=== PATIENT | male | born 1970 | race African-American/Black ===

== ENCOUNTER 2018-04-12 09:09 | Emergency (ER) | payer SELFPAY ==
[~2018-04-12] VITALS: Ht 188 cm; Wt 104.3 kg
[2018-04-12 09:18] VITALS: BP 116/67
[2018-04-12] MEDS ORDERED: CEPH500C PO (09:57)
--- NOTE | 2018-04-12 09:58 | PHYS DOC ---
Past Medical History Past Medical History: No Pertinent History Past Surgical History: Other Additional Past Surgical Histo: RIGHT WRIST SX Alcohol Use: None Drug Use: None Adult General Chief Complaint Chief Complaint: SKIN PROBLEM HPI HPI Patient is a 47 year old AA male who presents to the emergency room with complaints of left upper arm warmth, redness, itching, and swelling for the last 3 days. Patient states that at first the area started as what he thought was an insect bite, possibly a spider. He denies any drainage from the area, fever, numbness, tingling, or injury of the arm. He states that the more he itched the area the larger it became. He has tried applying alcohol to the site with no relief of his symptoms. Review of Systems Review of Systems Constitutional: Denies fever or chills [] Musculoskeletal: Denies back pain or joint pain [] Integument:See HPI Neurologic: Denies headache, focal weakness or sensory changes [] All other systems were reviewed and found to be within normal limits, except as documented in this note. Physical Exam Physical Exam Constitutional: Well developed, well nourished, no acute distress, non-toxic appearance. [] HENT: Normocephalic, atraumatic, bilateral external ears normal, nose normal. [] Eyes: PERRLA, conjunctiva normal, no discharge. [] Skin: Warm, dry, erythema and warmth with localized swelling noted to medial left upper arm extending from just below the axilla to the elbow consistent with cellulitis and localized reaction to insect sting Extremities: No tenderness, no cyanosis, no clubbing, ROM intact Neurologic: Alert and oriented X 3, normal motor function, normal sensory function, no focal deficits noted. [] Psychologic: Affect normal, judgement normal, mood normal. [] Current Patient Data Vital Signs Vital Signs Date Time Temp Pulse Resp B/P (MAP) Pulse Ox O2 Delivery O2 Flow Rate FiO2 04/12/18 09:18 98.0 77 18 116/67 (83) 96 Room Air 98.0 EKG EKG [] Radiology/Procedures Radiology/Procedures [] Course & Med Decision Making Course & Med Decision Making Pertinent Labs and Imaging studies reviewed. (See chart for details) [] Dragon Disclaimer Dragon Disclaimer This electronic medical record was generated, in whole or in part, using a voice recognition dictation system. Departure Departure Impression: Primary Impression: Insect bite of arm, left, infected Additional Impressions: Cellulitis Insect bite of upper arm with local reaction Disposition: 01 HOME, SELF-CARE Condition: STABLE Referrals: ANTOINE BOWSER MD (PCP) Patient Instructions: Cellulitis, Kuoe-hp-Mnai, Insect Bite, Otka-fn-Qioj Additional Instructions: Fill the prescription and take as directed. Take eont-hju-flsqrxk Benadryl 25 mg every 6 hours as needed for itching. Also recommend application of hydrocortisone cream to the itchy area. He may apply warm or cool packs for discomfort. Return to the emergency room if your symptoms worsen. Scripts Cephalexin (CEPHALEXIN) 500 Mg Capsule 1 CAP PO QID for 7 Days, #28 CAP 0 Refills Prov: CHRISTIAN PINA APRN 04/12/18 Problem Qualifiers Primary Impression: Insect bite of arm, left, infected Encounter type: initial encounter Qualified Codes: S40.862A - Insect bite ( nonvenomous) of left upper arm, initial encounter; L08.9 - Local infection of the skin and subcutaneous tissue, unspecified; W57.XXXA - Bitten or stung by nonvenomous insect and other nonvenomous arthropods, initial encounter Additional Impressions: Cellulitis Site of cellulitis: unspecified site Qualified Codes: L03.90 - Cellulitis, unspecified Insect bite of upper arm with local reaction Encounter type: initial encounter Laterality: left Qualified Codes: S40.862A - Insect bite (nonvenomous) of left upper arm, initial encounter; W57.XXXA - Bitten or stung by nonvenomous insect and other nonvenomous arthropods, initial encounter CHRISTIAN PINA APRN Apr 12, 2018 09:58
== END 2018-04-12 10:10 | disposition home or self-care (01) ==
LOC: ER 09:09
DX: L03.114 Cellulitis of left upper limb (principal); S40.862A Insect bite (nonvenomous) of left upper arm, initial encounter; L08.9 Local infection of the skin and subcutaneous tissue, unspecified; W57.XXXA Bitten or stung by nonvenomous insect and other nonvenomous arthropods, initial encounter; Y93.89 Activity, other specified; Y92.89 Other specified places as the place of occurrence of the external cause; Y99.8 Other external cause status
CPT/HCPCS: 99283

== ENCOUNTER 2021-07-01 17:38 | Inpatient (IN) | payer SELFPAY ==
[~2021-07-01] VITALS: Ht 188 cm; Wt 101.2 kg
[2021-07-01] VITALS (7 sets, daily range): BP systolic 85–100; BP diastolic 42–57
[~2021-07-01 17:38] MED LIST: CEPH500C PO
[2021-07-01 18:19] LABS: BASO # 0.1 x10^3/uL (0.0-0.2); BASO % 2 % (0-3); EOS % 1 % (0-3); HEMATOCRIT 23.5 % (39.0-53.0); LYMPH # 1.6 x10^3/uL (1.0-4.8); LYMPH % 45 % (24-48); MEAN CORPUSCULAR HEMOGLOBIN 16 pg (25-35); MEAN CORPUSCULAR HGB CONC 28 g/dL (31-37); MEAN CORPUSCULAR VOLUME 59 fL (79-100); MONO # 0.4 x10^3/uL (0.0-1.1); MONO % 10 % (0-9); NEUT # 1.5 x10^3/uL (1.8-7.7); NEUT % 42 % (31-73); PLATELET COUNT 259 x10^3/uL (140-400); RED BLOOD COUNT 4.02 x10^6/uL (4.30-5.70); RED CELL DISTRIBUTION WIDTH 21.3 % (11.5-14.5); WHITE BLOOD COUNT 3.5 x10^3/uL (4.0-11.0)
[2021-07-01 18:29] LABS: CALCIUM 7.9 mg/dL (8.5-10.1); CREATININE 0.8 mg/dL (0.7-1.3); GFR 123.8; POTASSIUM 4.5 mmol/L (3.5-5.1)
[2021-07-01 18:31] LABS: HEMOGLOBIN 6.5 g/dL (13.0-17.5)
[2021-07-01 18:34] LABS: ALBUMIN 3.3 g/dL (3.4-5.0); ALBUMIN/GLOBULIN RATIO 0.9 (1.0-1.7); TOTAL BILIRUBIN 0.3 mg/dL (0.2-1.0); TOTAL PROTEIN 7.1 g/dL (6.4-8.2)
[2021-07-01 18:41] LABS: FECAL OB PT NEGATIVE (NEG)
[2021-07-01] MEDS ORDERED: DOCUSATE SODIUM 100 MG CAPSULE. PO PRN (18:45)
[2021-07-01] MEDS ORDERED: SENNOSIDES 8.6 MG TABLET PO PRN (18:45)
[2021-07-01] MEDS ORDERED: ONDANSETRON PF 4 MG/2 ML VIAL. IVP PRN ×2 (18:45→20:15)
[2021-07-01] MEDS ORDERED: diphenhydrAMINE HCL 25 MG CAPSULE PO PRN (18:45)
[2021-07-01] MEDS ORDERED: PROCHLORPERAZINE 10 MG/2 ML VIAL. IV PRN (18:45)
[2021-07-01] MEDS ORDERED: ZOLPIDEM 5 MG TABLET. PO PRN (18:45)
[2021-07-01] MEDS ORDERED: ACETAMINOPHEN 325 MG TABLET. PO PRN ×2 (18:45→20:15)
[2021-07-01] MEDS ORDERED: DEXTROSE 50% 25 GM / 50ML DISP.SYRIN. IV PRN (18:45)
[2021-07-01] MEDS ORDERED: diphenhydrAMINE 50 MG/ML VIAL IVP PRN (18:45)
--- NOTE | 2021-07-01 18:49 | PDOC1 ---
History and Physical Date of Service: DOS: DATE: 07/01/21 TIME: 18:38 Chief Complaint: Chief Complain: Abnormal labs History of Present Illness: HPI: 50-year-old male with past medical history of chronic back pain who comes in with abnormal labs from the doctor's office. Patient states that he has been having on-and-off rectal bleeding for the past 5 years but has never had a work- up. Patient has never had a colonoscopy. He was found to have hemoglobin of 6.5 today. Patient denies any abdominal pain, nausea vomiting, chest pain, shortness of breath or syncope or palpitations. Patient does have severe back pain. Past Medical/Surgical History: PMH/PSH: Past Medical History: No Pertinent History, Anemia, CHRONIC SHOULDER PAIN Past Surgical History: No Surgical History, RIGHT WRIST SX Allergies: Allergies: Coded Allergies: No Known Drug Allergies (Unverified , 07/01/21) Family History: Family History: Reviewed with no relevant findings in the chart Social History: Social History: Smoking Status: Current Smoker Alcohol Use: Heavy Drug Use: None Current Medications: Current Medications Active Scripts Active Cephalexin 500 Mg Capsule 1 Cap PO QID 7 Days ROS: Review of Systems Review of System REVIEW OF SYSTEMS: GENERAL: Denies weakness SKIN: No bruising, hair changes or rashes. EYES: No blurred, double or loss of vision. NOSE AND THROAT: No history of nosebleeds, hoarseness or sore throat. HEART: No history of palpitations, chest pain or shortness of breath on exertion. LUNGS: Denies cough, hemoptysis, wheezing or shortness of breath. GASTROINTESTINAL: Denies changes in appetite, nausea, vomiting, diarrhea or constipation. GENITOURINARY: No history of frequency, urgency, hesitancy or nocturia. NEUROLOGIC: Denies history of numbness, tingling, or tremor. PSYCHIATRIC: No history of panic, anxiety or depression. ENDOCRINE: No history of heat or cold intolerance, polyuria or polydipsia. EXTREMITIES: Denies joint pain, pain on walking or stiffness. Physical Exam: Vital Signs: Vital Signs Date Time Temp Pulse Resp B/P (MAP) Pulse Ox O2 Delivery O2 Flow Rate FiO2 07/01/21 17:45 98.7 83 20 118/59 (78) 99 98.7 Physcial Exam: GEN: No apparent distress. Alert and oriented HEENT: Normal cephalic, atraumatic, external auditory canals are patent EYES: Extraocular muscles are intact, pupil are equally round and reactive to light and accommodation MUSCULOSKELETAL: Well developed , well nourished, good range of motion ENDOCRINE: No thyromegaly was palpated LYMPHATICS: No cervical chain or axillary nodes were noted HEMATOPOIETIC: No bruising NECK: Supple, no JVD, no thyromegaly was noted LUNGS: Clear to auscultation in all lung ham[place] without rhonchi or wheezing HEART: RRR, S!, S2 present. Peripheral pulses intact, no obvious murmurs noted ABDOMEN: Soft, nontender. Positive bowel sounds, no organomegaly, normal bowel sounds EXTREMITIES: Without clubbing, cyanosis, or edema. Pedal pulses intact. Negative Homans sign NEUROLOGIC: Normal speech and tone. A&O x 3, moves all extremities, no obvious focal deficits PSYCHIATRIC: Normal affect, normal mood. Stable SKIN: No ulcerations or rashes, good skin turgor, no jaundice VASCULAR: Good capillary refill, neurovascular bundle appears to be intact Labs: Labs: Laboratory Tests Test 07/01/21 18:10 White Blood Count 3.5 x10^3/uL (4.0-11.0) Red Blood Count 4.02 x10^6/uL (4.30-5.70) Hemoglobin 6.5 g/dL (13.0-17.5) Hematocrit 23.5 % (39.0-53.0) Mean Corpuscular Volume 59 fL (79-100) Mean Corpuscular Hemoglobin 16 pg (25-35) Mean Corpuscular Hemoglobin Concent 28 g/dL (31-37) Red Cell Distribution Width 21.3 % (11.5-14.5) Platelet Count 259 x10^3/uL (140-400) Neutrophils (%) (Auto) 42 % (31-73) Lymphocytes (%) (Auto) 45 % (24-48) Monocytes (%) (Auto) 10 % (0-9) Eosinophils (%) (Auto) 1 % (0-3) Basophils (%) (Auto) 2 % (0-3) Neutrophils # (Auto) 1.5 x10^3/uL (1.8-7.7) Lymphocytes # (Auto) 1.6 x10^3/uL (1.0-4.8) Monocytes # (Auto) 0.4 x10^3/uL (0.0-1.1) Eosinophils # (Auto) 0.0 x10^3/uL (0.0-0.7) Basophils # (Auto) 0.1 x10^3/uL (0.0-0.2) Sodium Level 140 mmol/L (136-145) Potassium Level 4.5 mmol/L (3.5-5.1) Chloride Level 105 mmol/L (98-107) Carbon Dioxide Level 22 mmol/L (21-32) Anion Gap 13 (6-14) Blood Urea Nitrogen 9 mg/dL (8-26) Creatinine 0.8 mg/dL (0.7-1.3) Estimated GFR (Cockcroft-Gault) 123.8 BUN/Creatinine Ratio 11 (6-20) Glucose Level 99 mg/dL (70-99) Calcium Level 7.9 mg/dL (8.5-10.1) Total Bilirubin 0.3 mg/dL (0.2-1.0) Aspartate Amino Transf (AST/SGOT) 22 U/L (15-37) Alanine Aminotransferase (ALT/SGPT) 22 U/L (16-63) Alkaline Phosphatase 74 U/L (46-116) Total Protein 7.1 g/dL (6.4-8.2) Albumin 3.3 g/dL (3.4-5.0) Albumin/Globulin Ratio 0.9 (1.0-1.7) Laboratory Tests Test 07/01/21 18:10 White Blood Count 3.5 x10^3/uL (4.0-11.0) Red Blood Count 4.02 x10^6/uL (4.30-5.70) Hemoglobin 6.5 g/dL (13.0-17.5) Hematocrit 23.5 % (39.0-53.0) Mean Corpuscular Volume 59 fL (79-100) Mean Corpuscular Hemoglobin 16 pg (25-35) Mean Corpuscular Hemoglobin Concent 28 g/dL (31-37) Red Cell Distribution Width 21.3 % (11.5-14.5) Platelet Count 259 x10^3/uL (140-400) Neutrophils (%) (Auto) 42 % (31-73) Lymphocytes (%) (Auto) 45 % (24-48) Monocytes (%) (Auto) 10 % (0-9) Eosinophils (%) (Auto) 1 % (0-3) Basophils (%) (Auto) 2 % (0-3) Neutrophils # (Auto) 1.5 x10^3/uL (1.8-7.7) Lymphocytes # (Auto) 1.6 x10^3/uL (1.0-4.8) Monocytes # (Auto) 0.4 x10^3/uL (0.0-1.1) Eosinophils # (Auto) 0.0 x10^3/uL (0.0-0.7) Basophils # (Auto) 0.1 x10^3/uL (0.0-0.2) Sodium Level 140 mmol/L (136-145) Potassium Level 4.5 mmol/L (3.5-5.1) Chloride Level 105 mmol/L (98-107) Carbon Dioxide Level 22 mmol/L (21-32) Anion Gap 13 (6-14) Blood Urea Nitrogen 9 mg/dL (8-26) Creatinine 0.8 mg/dL (0.7-1.3) Estimated GFR (Cockcroft-Gault) 123.8 BUN/Creatinine Ratio 11 (6-20) Glucose Level 99 mg/dL (70-99) Calcium Level 7.9 mg/dL (8.5-10.1) Total Bilirubin 0.3 mg/dL (0.2-1.0) Aspartate Amino Transf (AST/SGOT) 22 U/L (15-37) Alanine Aminotransferase (ALT/SGPT) 22 U/L (16-63) Alkaline Phosphatase 74 U/L (46-116) Total Protein 7.1 g/dL (6.4-8.2) Albumin 3.3 g/dL (3.4-5.0) Albumin/Globulin Ratio 0.9 (1.0-1.7) Images: Images No recent images to review Assessment/Plan Assessment/Plan Acute symptomatic profound anemia, secondary to acute GIB Microcytic anemia, possible KATHY Acute on chronic back pain, likely due to sciatica Admit to hospitalist service for further management GI consult Pending 1 unit PRBC transfusion Trend hemoglobin PMR consult for sciatica Contraindicated for DVT prophylaxis Protonix GI prophylaxis ADA diet CODE STATUS full Discussed with RN and SW Disposition inpatient management as above DPOA: Merissa Boogie Justifications for Admission Other Justification HERMELINDA NATHAN MD Jul 01, 2021 18:49
--- NOTE | 2021-07-01 19:02 | PHYS DOC ---
Past Medical History Past Medical History: No Pertinent History, Anemia Additional Past Medical Histor: CHRONIC SHOULDER PAIN Past Surgical History: No Surgical History Additional Past Surgical Histo: RIGHT WRIST SX Smoking Status: Never Smoker Alcohol Use: Heavy Drug Use: None General Adult EDM: Chief Complaint: ABNORMAL LABS HPI: HPI: Patient is a 50 year old male with no significant medical history who presents to the ED today complaining of a anemia. Patient states he was at the doctor's office where labs were drawn as part of disability work-up for chronic shoulder pain from an injury a couple years ago, he states hemoglobin was 6.4 with HCT of 23.1. Patient's significant female partner states he has had rectal bleeding on and off for a couple years but never took action to get help though patient seem not aware of his rectal bleeding. Patient denies any nausea, vomiting. Review of Systems: Review of Systems: Constitutional: Denies fever or chills. [] Eyes: Denies change in visual acuity. [] HENT: Denies nasal congestion or sore throat. [] Respiratory: Denies cough or shortness of breath. [] Cardiovascular: Reports anemia. Denies chest pain or edema. [] GI: Reports rectal bleeding. Denies abdominal pain, nausea, vomiting, bloody stools or diarrhea. [] : Denies dysuria. [] Musculoskeletal: Denies back pain or joint pain. [] Integument: Denies rash. [] Neurologic: Denies headache, focal weakness or sensory changes. [] Psychiatric: Denies depression or anxiety. [] Heart Score: C/O Chest Pain: N/A Risk Factors: Risk Factors: DM, Current or recent (<one month) smoker, HTN, HLP, family history of CAD, obesity. Risk Scores: Score 0 - 3: 2.5% MACE over next 6 weeks - Discharge Home Score 4 - 6: 20.3% MACE over next 6 weeks - Admit for Clinical Observation Score 7 - 10: 72.7% MACE over next 6 weeks - Early Invasive Strategies Current Medications: Current Medications Medications (Trade) Dose Ordered Sig/Lilian Start Time Stop Time Status Last Admin Dose Admin Acetaminophen (Tylenol) 650 mg PRN Q4HRS PRN 07/01/21 18:45 Dextrose (Dextrose 50%-Water Syringe) 12.5 gm PRN Q15MIN PRN 07/01/21 18:45 Diphenhydramine HCl (Benadryl) 25 mg PRN QHS PRN 07/01/21 18:45 Docusate Sodium (Colace) 100 mg PRN DAILY PRN 07/01/21 18:45 Lorazepam (Ativan Inj) 0.25 mg PRN Q4HRS PRN 07/01/21 18:45 Lorazepam (Ativan) 0.5 mg PRN Q6HRS PRN 07/01/21 18:45 Ondansetron HCl (Zofran) 4 mg PRN Q6HRS PRN 07/01/21 18:45 Pantoprazole Sodium (Protonix) 40 mg DAILYAC 07/02/21 07:30 Prochlorperazine Edisylate (Compazine) 10 mg PRN Q6HRS PRN 07/01/21 18:45 Sennosides (Senna) 17.2 mg PRN BID PRN 07/01/21 18:45 Sodium Chloride 1,000 ml @ 100 mls/hr Q10H 07/01/21 18:45 Zolpidem Tartrate (Ambien) 2.5 mg PRN QHS PRN 07/01/21 18:45 Allergies: Allergies: Allergies Coded Allergies Type Severity Reaction Last Updated Verified No Known Drug Allergies 07/01/21 No Physical Exam: PE: Constitutional: Well developed, well nourished, no acute distress, non-toxic appearance. [] HENT: Normocephalic, atraumatic, bilateral external ears normal, oropharynx moist, no oral exudates, nose normal. [] Eyes: PERRLA, EOMI, conjunctiva normal, no discharge. [] Neck: Normal range of motion, no tenderness, supple, no stridor. [] Cardiovascular:Heart rate regular rhythm, no murmur [] Lungs & Thorax: Bilateral breath sounds clear to auscultation [] Abdomen: Bowel sounds normal, soft, no tenderness, no masses, no pulsatile masses. [] Rectal exam-external hemorrhoids noted, no internal hemorrhoids noted on exam. Skin: Warm, dry, no erythema, no rash. [] Back: No tenderness, no CVA tenderness. [] Extremities: No tenderness, no cyanosis, no clubbing, ROM intact, no edema. [] Neurologic: Alert and oriented X 3, normal motor function, normal sensory function, no focal deficits noted. [] Psychologic: Appears intoxicated, laughing inappropriately Current Patient Data: Labs: Laboratory Tests Test 07/01/21 18:01 07/01/21 18:10 Stool Occult Blood Negative (NEG) White Blood Count 3.5 x10^3/uL (4.0-11.0) L Red Blood Count 4.02 x10^6/uL (4.30-5.70) L Hemoglobin 6.5 g/dL (13.0-17.5) *L Hematocrit 23.5 % (39.0-53.0) L Mean Corpuscular Volume 59 fL (79-100) L Mean Corpuscular Hemoglobin 16 pg (25-35) L Mean Corpuscular Hemoglobin Concent 28 g/dL (31-37) L Red Cell Distribution Width 21.3 % (11.5-14.5) H Platelet Count 259 x10^3/uL (140-400) Neutrophils (%) (Auto) 42 % (31-73) Lymphocytes (%) (Auto) 45 % (24-48) Monocytes (%) (Auto) 10 % (0-9) H Eosinophils (%) (Auto) 1 % (0-3) Basophils (%) (Auto) 2 % (0-3) Neutrophils # (Auto) 1.5 x10^3/uL (1.8-7.7) L Lymphocytes # (Auto) 1.6 x10^3/uL (1.0-4.8) Monocytes # (Auto) 0.4 x10^3/uL (0.0-1.1) Eosinophils # (Auto) 0.0 x10^3/uL (0.0-0.7) Basophils # (Auto) 0.1 x10^3/uL (0.0-0.2) Sodium Level 140 mmol/L (136-145) Potassium Level 4.5 mmol/L (3.5-5.1) Chloride Level 105 mmol/L (98-107) Carbon Dioxide Level 22 mmol/L (21-32) Anion Gap 13 (6-14) Blood Urea Nitrogen 9 mg/dL (8-26) Creatinine 0.8 mg/dL (0.7-1.3) Estimated GFR (Cockcroft-Gault) 123.8 BUN/Creatinine Ratio 11 (6-20) Glucose Level 99 mg/dL (70-99) Calcium Level 7.9 mg/dL (8.5-10.1) L Total Bilirubin 0.3 mg/dL (0.2-1.0) Aspartate Amino Transferase (AST) 22 U/L (15-37) Alanine Aminotransferase (ALT) 22 U/L (16-63) Alkaline Phosphatase 74 U/L (46-116) Total Protein 7.1 g/dL (6.4-8.2) Albumin 3.3 g/dL (3.4-5.0) L Albumin/Globulin Ratio 0.9 (1.0-1.7) L Laboratory Tests 07/01/21 18:10 Laboratory Tests 07/01/21 18:10 Vital Signs: Vital Signs Date Time Temp Pulse Resp B/P (MAP) Pulse Ox O2 Delivery O2 Flow Rate FiO2 07/01/21 17:45 98.7 83 20 118/59 (78) 99 98.7 EKG: EKG: [] Radiology/Procedures: Radiology/Procedures: [] Course & Med Decision Making: Course & Med Decision Making Pertinent Labs and Imaging studies reviewed. (See chart for details) This is a 50-year-old male patient presenting to the ED today for anemia, hemoglobin of 6.4 with hematocrit of 23.1, labs are drawn today at the doctor's office. Hemoglobin in the ED is 6.5 with hematocrit of 23.4 with MCV of 59, MCH 16 WBC 3.5 Hemoccult negative. Alcohol level 234. Spoke with Dr. Lares who accepted patient for admission. 1 unit of blood ordered Tanisha Disclaimer: Tanisha Disclaimer: This electronic medical record was generated, in whole or in part, using a voice recognition dictation system. Departure Departure Impression: Primary Impression: Anemia Qualified Codes: D64.9 - Anemia, unspecified Additional Impression: ETOHism Disposition: ADMITTED INPATIENT Condition: STABLE Referrals: NON,STAFF (PCP) QI TODD APRN Jul 01, 2021 19:01
[2021-07-01] MEDS ORDERED: MORPHINE SULFATE 2 MG/ML INJ. IVP PRN (20:15)
[2021-07-01] MEDS ORDERED: HYDROcodone/APAP 5/325MG 1 TAB TABLET PO PRN (20:30)
[2021-07-01] MEDS: IV NORMAL SALINE 1000ML BAG 1,000 ML IV SCH (20:38)
[2021-07-01] MEDS: THIAMINE 100 MG TABLET. PO SCH (21:11)
[2021-07-01] MEDS: HYDROcodone/APAP 5/325MG 1 TAB TABLET PO PRN (21:16)
[2021-07-02] VITALS (10 sets, daily range): BP systolic 88–137; BP diastolic 50–86
[2021-07-02] MEDS: LORazepam 0.5 MG TABLET PO PRN ×3 (03:19→16:21)
[2021-07-02] MEDS: HYDROcodone/APAP 5/325MG 1 TAB TABLET PO PRN ×2 (03:23→09:20)
[2021-07-02] MEDS: IV NORMAL SALINE 1000ML BAG 1,000 ML IV SCH ×3 (04:53→20:01)
[2021-07-02 06:44] LABS: BASO % 1 % (0-3); EOS % 1 % (0-3); HEMATOCRIT 23.2 % (39.0-53.0); LYMPH % 40 % (24-48); MEAN CORPUSCULAR HEMOGLOBIN 18 pg (25-35); MEAN CORPUSCULAR HGB CONC 30 g/dL (31-37); MEAN CORPUSCULAR VOLUME 60 fL (79-100); MONO # 0.4 x10^3/uL (0.0-1.1); MONO % 15 % (0-9); NEUT # 1.1 x10^3/uL (1.8-7.7); NEUT % 43 % (31-73); PLATELET COUNT 234 x10^3/uL (140-400); RED BLOOD COUNT 3.84 x10^6/uL (4.30-5.70); RED CELL DISTRIBUTION WIDTH 23.9 % (11.5-14.5); WHITE BLOOD COUNT 2.5 x10^3/uL (4.0-11.0)
[2021-07-02 06:56] LABS: HEMOGLOBIN 6.9 g/dL (13.0-17.5)
[2021-07-02 07:05] LABS: CALCIUM 7.3 mg/dL (8.5-10.1); CREATININE 0.8 mg/dL (0.7-1.3); GFR 123.8; MAGNESIUM 1.7 mg/dL (1.8-2.4); PHOSPHORUS 4.1 mg/dL (2.6-4.7); POTASSIUM 4.6 mmol/L (3.5-5.1)
[2021-07-02] MEDS: PANTOPRAZOLE 40 MG TABLET.DR. PO SCH (09:20)
[2021-07-02] MEDS: VITAMIN B12,B9,B6 COMPLEX 1 TABLET. PO SCH (09:20)
[2021-07-02] MEDS: THIAMINE 100 MG TABLET. PO SCH (09:20)
[2021-07-02 09:31] LABS: % BANDS 1 % (0-9); % EOS 1 % (0-5); % LYMPHS 23 % (24-48); % MONOS 7 % (0-10); % SEGS 68 % (35-66); ANISOCYTOSIS PRESENT; HYPOCHROMIA PRESENT; MICROCYTOSIS PRESENT; PLT ESTIMATE ADEQUATE (ADEQUATE); POIKILOCYTOSIS PRESENT; POLYCHROMASIA PRESENT
--- NOTE | 2021-07-02 10:19 | PDOC2 ---
GI CONSULT Date of Service: DATE: 07/02/21 TIME: 10:09 Reason For Consult: anemia HPI: HPI: 50 y/o male sent to ER for abnormal labs and admitted. We are asked to see for KATHY. S/p 1 unit pRBCs and another ordered. Eating regular diet and his just brought him a cookie from downstairs. Intermittent rectal bleeding (brown stool w/ red blood on tissue, sometimes dripping into toilet) and hematuria for >1 year. No reflux/heartburn, dysphagia, n/v, abd pain, diarrhea, constipation, melena, change in appetite, or weight loss. (He said he didn't know about weight loss - I asked if his clothes fit the same and he said "most of them do and most of them don't. His says he has not lost weight and that he has a good appetite.) No previous EGD or colonoscopy. No GB, liver, pancreas, or PUD history. Was taking BC powder, stopped recently. Lot of family members with cancer, "probably" some w/ colon cancer. Reviewed pas labs - anemia/microcytosis noted in 01/2021. Alcohol level 234 this time. Significant time spent, plan of care detailed, questions answered - then he said "no one is telling me anything." Pt and were not satisfied with care provided at a free clinic he visited recently. PMH: PMH: headaches, shoulder pain right wrist surgery FH: Family History: Cancer Social History: Smoke: <1 pack per day ALCOHOL: heavy ROS: GEN: Denies fevers, chills, sweats HEENT: Denies blurred vision, sore throat CV: Denies chest pain RESP: Denies shortness of air, cough GI: Per HPI : +hematuria ENDO: Denies weight changes NEURO: Denies confusion, dizziness MSK: Denies weakness, joint pain/swelling SKIN: Denies jaundice, pruritus Vitals: Vitals: Vital Signs Date Time Temp Pulse Resp B/P (MAP) Pulse Ox O2 Delivery O2 Flow Rate FiO2 07/02/21 10:00 Room Air 07/02/21 07:00 74 18 123/76 (92) 97 07/01/21 23:45 98.5 98.5 Labs: Labs: Laboratory Tests Test 07/01/21 18:01 07/01/21 18:10 07/02/21 05:55 Stool Occult Blood Negative (NEG) White Blood Count 3.5 x10^3/uL (4.0-11.0) 2.5 x10^3/uL (4.0-11.0) Red Blood Count 4.02 x10^6/uL (4.30-5.70) 3.84 x10^6/uL (4.30-5.70) Hemoglobin 6.5 g/dL (13.0-17.5) 6.9 g/dL (13.0-17.5) Hematocrit 23.5 % (39.0-53.0) 23.2 % (39.0-53.0) Mean Corpuscular Volume 59 fL (79-100) 60 fL (79-100) Mean Corpuscular Hemoglobin 16 pg (25-35) 18 pg (25-35) Mean Corpuscular Hemoglobin Concent 28 g/dL (31-37) 30 g/dL (31-37) Red Cell Distribution Width 21.3 % (11.5-14.5) 23.9 % (11.5-14.5) Platelet Count 259 x10^3/uL (140-400) 234 x10^3/uL (140-400) Neutrophils (%) (Auto) 42 % (31-73) 43 % (31-73) Lymphocytes (%) (Auto) 45 % (24-48) 40 % (24-48) Monocytes (%) (Auto) 10 % (0-9) 15 % (0-9) Eosinophils (%) (Auto) 1 % (0-3) 1 % (0-3) Basophils (%) (Auto) 2 % (0-3) 1 % (0-3) Neutrophils # (Auto) 1.5 x10^3/uL (1.8-7.7) 1.1 x10^3/uL (1.8-7.7) Lymphocytes # (Auto) 1.6 x10^3/uL (1.0-4.8) 1.0 x10^3/uL (1.0-4.8) Monocytes # (Auto) 0.4 x10^3/uL (0.0-1.1) 0.4 x10^3/uL (0.0-1.1) Eosinophils # (Auto) 0.0 x10^3/uL (0.0-0.7) 0.0 x10^3/uL (0.0-0.7) Basophils # (Auto) 0.1 x10^3/uL (0.0-0.2) 0.0 x10^3/uL (0.0-0.2) Sodium Level 140 mmol/L (136-145) 140 mmol/L (136-145) Potassium Level 4.5 mmol/L (3.5-5.1) 4.6 mmol/L (3.5-5.1) Chloride Level 105 mmol/L (98-107) 108 mmol/L (98-107) Carbon Dioxide Level 22 mmol/L (21-32) 23 mmol/L (21-32) Anion Gap 13 (6-14) 9 (6-14) Blood Urea Nitrogen 9 mg/dL (8-26) 8 mg/dL (8-26) Creatinine 0.8 mg/dL (0.7-1.3) 0.8 mg/dL (0.7-1.3) Estimated GFR (Cockcroft-Gault) 123.8 123.8 BUN/Creatinine Ratio 11 (6-20) Glucose Level 99 mg/dL (70-99) 91 mg/dL (70-99) Calcium Level 7.9 mg/dL (8.5-10.1) 7.3 mg/dL (8.5-10.1) Ferritin 4 ng/mL (26-388) Total Bilirubin 0.3 mg/dL (0.2-1.0) Aspartate Amino Transf (AST/SGOT) 22 U/L (15-37) Alanine Aminotransferase (ALT/SGPT) 22 U/L (16-63) Alkaline Phosphatase 74 U/L (46-116) Total Protein 7.1 g/dL (6.4-8.2) Albumin 3.3 g/dL (3.4-5.0) Albumin/Globulin Ratio 0.9 (1.0-1.7) Ethyl Alcohol Level 234 mg/dL (0-10) Segmented Neutrophils % 68 % (35-66) Band Neutrophils % 1 % (0-9) Lymphocytes % 23 % (24-48) Monocytes % 7 % (0-10) Eosinophils % 1 % (0-5) Platelet Estimate Adequate (ADEQUATE) Polychromasia Present Hypochromasia Present Poikilocytosis Present Anisocytosis Present Microcytosis Present Macrocytosis Present Phosphorus Level 4.1 mg/dL (2.6-4.7) Magnesium Level 1.7 mg/dL (1.8-2.4) Allergies: Coded Allergies: No Known Drug Allergies (Unverified , 07/01/21) Medications: Current Medications Medications (Trade) Dose Ordered Sig/Lilian Route PRN Reason Start Time Stop Time Status Last Admin Dose Admin Ondansetron HCl (Zofran) 4 mg PRN Q6HRS PRN IVP NAUSEA/VOMITING, 1st CHOICE 07/01/21 18:45 07/02/21 05:18 Sodium Chloride 1,000 ml @ 100 mls/hr Q10H IV 07/01/21 18:45 07/02/21 04:53 Lorazepam (Ativan) 0.5 mg PRN Q6HRS PRN PO ANXIETY / AGITATION 07/01/21 18:45 07/02/21 09:20 Lorazepam (Ativan Inj) 0.25 mg PRN Q4HRS PRN IV ANXIETY / AGITATION 07/01/21 18:45 07/02/21 05:24 Pantoprazole Sodium (Protonix) 40 mg DAILYAC PO 07/02/21 07:30 07/02/21 09:20 Zolpidem Tartrate (Ambien) 2.5 mg PRN QHS PRN PO INSOMNIA, 2nd CHOICE 07/01/21 18:45 07/01/21 21:12 Acetaminophen/ Hydrocodone Bitart (Lortab 5/325) 2 tab PRN Q4HRS PRN PO MODERATE PAIN, SEVERE PAIN 07/01/21 20:30 07/02/21 09:20 Thiamine Mononitrate (Vitamin B-1) 300 mg DAILY PO 07/01/21 21:00 07/02/21 09:20 Vitamin B Complex (Folbic Tablet) 1 tab DAILY PO 07/02/21 09:00 07/02/21 09:20 PE: GEN: NAD HEENT: Atraumatic, PERRL LUNGS: frequent coughing HEART: RRR ABD: NABS, S/ND/NT, umbilical hernia, right inguinal hernia EXTREMITY: No edema SKIN: No rashes, no jaundice NEURO/PSYCH: A & O 3 A/P: A/P: KATHY - requiring transfusions Intermittent rectal bleeding, Hemoccult negative CRC screen - none +alcohol -- DC per primary if able to maintain Hgb after next transfusion. Future tra nsfusion can also be completed as outpt. Would send on PPI and iron. Recommend no NSAIDs/ASA. Our office will call to arrange outpt EGD and colonoscopy. Should drink less. VELMA BOLDEN Jul 02, 2021 10:19
--- NOTE | 2021-07-02 10:41 | PDOC ---
[employer] PROGRESS NOTE Date of Service DOS: DATE: 07/02/21 TIME: 10:28 History of Present Illness History of Present Illness 07/02/2021 Patient seen and examined at bedside this morning with his also present in room Patient in mild distress this morning due to dizziness when moving his head or standing up Patient also admits right-sided headache Discussed patient alcohol intake with spouse; Spouse indicates increased drink ing due to recent funerals and celebrations; insists patient is "not an alcoholic" Patient states that he has been scheduled for upcoming EGD and colonoscopy on outpatient basis Discussed with RN Chart reviewed Vitals/I&O Vitals/I&O: Vital Signs Date Time Temp Pulse Resp B/P (MAP) Pulse Ox O2 Delivery O2 Flow Rate FiO2 07/02/21 10:00 Room Air 07/02/21 07:00 74 18 123/76 (92) 97 07/01/21 23:45 98.5 98.5 Physical Exam General: Alert, Oriented X3 Heart: Regular rate, No murmurs Lungs: Clear Abdomen: Soft, No tenderness Extremities: No clubbing, No cyanosis Skin: No rashes Labs Labs: Laboratory Tests Test 07/01/21 18:01 07/01/21 18:10 07/02/21 05:55 Stool Occult Blood Negative (NEG) White Blood Count 3.5 x10^3/uL (4.0-11.0) 2.5 x10^3/uL (4.0-11.0) Red Blood Count 4.02 x10^6/uL (4.30-5.70) 3.84 x10^6/uL (4.30-5.70) Hemoglobin 6.5 g/dL (13.0-17.5) 6.9 g/dL (13.0-17.5) Hematocrit 23.5 % (39.0-53.0) 23.2 % (39.0-53.0) Mean Corpuscular Volume 59 fL (79-100) 60 fL (79-100) Mean Corpuscular Hemoglobin 16 pg (25-35) 18 pg (25-35) Mean Corpuscular Hemoglobin Concent 28 g/dL (31-37) 30 g/dL (31-37) Red Cell Distribution Width 21.3 % (11.5-14.5) 23.9 % (11.5-14.5) Platelet Count 259 x10^3/uL (140-400) 234 x10^3/uL (140-400) Neutrophils (%) (Auto) 42 % (31-73) 43 % (31-73) Lymphocytes (%) (Auto) 45 % (24-48) 40 % (24-48) Monocytes (%) (Auto) 10 % (0-9) 15 % (0-9) Eosinophils (%) (Auto) 1 % (0-3) 1 % (0-3) Basophils (%) (Auto) 2 % (0-3) 1 % (0-3) Neutrophils # (Auto) 1.5 x10^3/uL (1.8-7.7) 1.1 x10^3/uL (1.8-7.7) Lymphocytes # (Auto) 1.6 x10^3/uL (1.0-4.8) 1.0 x10^3/uL (1.0-4.8) Monocytes # (Auto) 0.4 x10^3/uL (0.0-1.1) 0.4 x10^3/uL (0.0-1.1) Eosinophils # (Auto) 0.0 x10^3/uL (0.0-0.7) 0.0 x10^3/uL (0.0-0.7) Basophils # (Auto) 0.1 x10^3/uL (0.0-0.2) 0.0 x10^3/uL (0.0-0.2) Sodium Level 140 mmol/L (136-145) 140 mmol/L (136-145) Potassium Level 4.5 mmol/L (3.5-5.1) 4.6 mmol/L (3.5-5.1) Chloride Level 105 mmol/L (98-107) 108 mmol/L (98-107) Carbon Dioxide Level 22 mmol/L (21-32) 23 mmol/L (21-32) Anion Gap 13 (6-14) 9 (6-14) Blood Urea Nitrogen 9 mg/dL (8-26) 8 mg/dL (8-26) Creatinine 0.8 mg/dL (0.7-1.3) 0.8 mg/dL (0.7-1.3) Estimated GFR (Cockcroft-Gault) 123.8 123.8 BUN/Creatinine Ratio 11 (6-20) Glucose Level 99 mg/dL (70-99) 91 mg/dL (70-99) Calcium Level 7.9 mg/dL (8.5-10.1) 7.3 mg/dL (8.5-10.1) Ferritin 4 ng/mL (26-388) Total Bilirubin 0.3 mg/dL (0.2-1.0) Aspartate Amino Transf (AST/SGOT) 22 U/L (15-37) Alanine Aminotransferase (ALT/SGPT) 22 U/L (16-63) Alkaline Phosphatase 74 U/L (46-116) Total Protein 7.1 g/dL (6.4-8.2) Albumin 3.3 g/dL (3.4-5.0) Albumin/Globulin Ratio 0.9 (1.0-1.7) Ethyl Alcohol Level 234 mg/dL (0-10) Segmented Neutrophils % 68 % (35-66) Band Neutrophils % 1 % (0-9) Lymphocytes % 23 % (24-48) Monocytes % 7 % (0-10) Eosinophils % 1 % (0-5) Platelet Estimate Adequate (ADEQUATE) Polychromasia Present Hypochromasia Present Poikilocytosis Present Anisocytosis Present Microcytosis Present Macrocytosis Present Phosphorus Level 4.1 mg/dL (2.6-4.7) Magnesium Level 1.7 mg/dL (1.8-2.4) Assessment and Plan Assessmemt and Plan Problems Medical Problems: (1) Anemia Status: Acute (2) ETOHism Status: Acute Assessment Acute symptomatic profound anemia, secondary to acute GIB Microcytic anemia, possible KATHY Acute on chronic back pain, likely due to sciatica Plan Await 1 unit PRBC transfusion (07/02) Toradol for right sided headache FeSO4 for anemia Trend hemoglobin Await PMR consult for sciatica PT/OT for back pain Protonix GI prophylaxis ADA diet Discussed with RN and SW Appreciate GI input Pharmacological DVT prophylaxis contraindicated Full Code Disposition inpatient management as above DPOA: Merissa Boogie Comment Review of Relevant I have reviewed the following items sandeep (where applicable) has been applied. Medications: Current Medications Medications (Trade) Dose Ordered Sig/Lilian Route PRN Reason Start Time Stop Time Status Last Admin Dose Admin Ondansetron HCl (Zofran) 4 mg PRN Q6HRS PRN IVP NAUSEA/VOMITING, 1st CHOICE 07/01/21 18:45 07/02/21 05:18 Sodium Chloride 1,000 ml @ 100 mls/hr Q10H IV 07/01/21 18:45 07/02/21 04:53 Lorazepam (Ativan) 0.5 mg PRN Q6HRS PRN PO ANXIETY / AGITATION 07/01/21 18:45 07/02/21 09:20 Lorazepam (Ativan Inj) 0.25 mg PRN Q4HRS PRN IV ANXIETY / AGITATION 07/01/21 18:45 07/02/21 05:24 Pantoprazole Sodium (Protonix) 40 mg DAILYAC PO 07/02/21 07:30 07/02/21 09:20 Zolpidem Tartrate (Ambien) 2.5 mg PRN QHS PRN PO INSOMNIA, 2nd CHOICE 07/01/21 18:45 07/01/21 21:12 Acetaminophen/ Hydrocodone Bitart (Lortab 5/325) 2 tab PRN Q4HRS PRN PO MODERATE PAIN, SEVERE PAIN 07/01/21 20:30 07/02/21 09:20 Thiamine Mononitrate (Vitamin B-1) 300 mg DAILY PO 07/01/21 21:00 07/02/21 09:20 Vitamin B Complex (Folbic Tablet) 1 tab DAILY PO 07/02/21 09:00 07/02/21 09:20 Justifications for Admission Other Justification Anemia due to acute gastrointestinal bleeding REJI POSADAS III DO Jul 02, 2021 10:41
[2021-07-02] MEDS ORDERED: KETOROLAC 30 MG/ML VIAL. IVP PRN (10:45)
[2021-07-02] MEDS ORDERED: MAGNESIUM SULFATE 2GM 50 ML IV ONE (11:00)
[2021-07-02] MEDS: FERROUS SULFATE ORAL 300 MG/5 ML SOLUTION. PO SCH ×2 (11:51→16:20)
--- NOTE | 2021-07-02 12:37 | NUR ---
SW following. Discussed with RN, pt from home with , room air, regular diet, GI following. Pt getting blood today. Med Assist following for self pay status. SW will continue to follow.
[2021-07-02] MEDS: diphenhydrAMINE HCL 25 MG CAPSULE PO PRN (17:55)
[2021-07-03 03:00] VITALS: BP 111/67
[2021-07-03] MEDS: LORazepam 0.5 MG TABLET PO PRN (05:00)
[2021-07-03] MEDS: diphenhydrAMINE HCL 25 MG CAPSULE PO PRN (05:00)
[2021-07-03] MEDS: IV NORMAL SALINE 1000ML BAG 1,000 ML IV SCH (05:01)
[2021-07-03 06:51] LABS: BASO % 1 % (0-3); EOS % 1 % (0-3); HEMATOCRIT 26.4 % (39.0-53.0); HEMOGLOBIN 7.7 g/dL (13.0-17.5); LYMPH # 0.9 x10^3/uL (1.0-4.8); LYMPH % 23 % (24-48); MEAN CORPUSCULAR HEMOGLOBIN 18 pg (25-35); MEAN CORPUSCULAR HGB CONC 29 g/dL (31-37); MEAN CORPUSCULAR VOLUME 62 fL (79-100); MONO # 0.4 x10^3/uL (0.0-1.1); MONO % 10 % (0-9); NEUT # 2.7 x10^3/uL (1.8-7.7); NEUT % 66 % (31-73); PLATELET COUNT 210 x10^3/uL (140-400); RED BLOOD COUNT 4.28 x10^6/uL (4.30-5.70); RED CELL DISTRIBUTION WIDTH 24.9 % (11.5-14.5); WHITE BLOOD COUNT 4.1 x10^3/uL (4.0-11.0)
[2021-07-03 06:58] LABS: CALCIUM 7.6 mg/dL (8.5-10.1); CREATININE 0.8 mg/dL (0.7-1.3); GFR 123.8
[2021-07-03 07:30] VITALS: BP 132/80
[2021-07-03] MEDS: VITAMIN B12,B9,B6 COMPLEX 1 TABLET. PO SCH (08:44)
[2021-07-03] MEDS: THIAMINE 100 MG TABLET. PO SCH (08:44)
[2021-07-03] MEDS: PANTOPRAZOLE 40 MG TABLET.DR. PO SCH (08:44)
[2021-07-03] MEDS: FERROUS SULFATE ORAL 300 MG/5 ML SOLUTION. PO SCH (08:44)
[2021-07-03] MEDS ORDERED: TEMA15CA6 PO (10:51)
[2021-07-03] MEDS ORDERED: HYDR-2761 PO (10:51)
[2021-07-03] MEDS ORDERED: PANT40TA77 PO (10:51)
--- NOTE | 2021-07-03 11:21 | NUR ---
PT DISCHARGED HOME WITH SELF CARE. DISCHARGE INSTRUCTIONS AND PRESCRIPTIONS DISCUSSED. PT VERBALIZED UNDERSTANDING. IV REMOVED. PT AMBULATED TO EXIT WITH AND BUN PANNER.
--- NOTE | 2021-07-03 12:49 | DS ---
DATE OF DISCHARGE: 07/03/2021 ADMITTING DIAGNOSIS: Severe anemia. DISCHARGE DIAGNOSES: Resolving severe anemia, status post transfusions, history of alcohol issues, right wrist surgery and chronic shoulder pain. CONSULTS: GI. PROCEDURES: None. HOSPITAL COURSE: The patient is a pleasant middle-aged male who presented with weakness, was noted to be severely anemic. He had a hemoglobin of 6.5. We transfused the patient and consulted GI. We gave him proton pump inhibitors and basically he is doing better. Today, I saw him and examined him. He wants to go home. GI is planning on doing outpatient endoscopies. We plan to discharge with close outpatient followup. DISPOSITION: Home. ACTIVITY: As tolerated. DIET: Low sodium. MEDICATIONS: Please see the MRAD. Restoril 15 mg at bedtime, Lortab 5 mg q. 4 p.r.n., Protonix 40 p.o. every day. SRIRAM/LARISA DR: Valentín TID: [id number]
== END 2021-07-03 11:23 | disposition home or self-care (01) | DRG 379 ==
LOC: ER 17:38 → 4 NORTH 18:38
PROVIDERS: ADMIT Internal Medicine; ATTEND Internal Medicine
PROC: 30233N1 Transfusion of Nonautologous Red Blood Cells into Peripheral Vein, Percutaneous Approach (ICD-10-PCS; principal; 2021-07-01)
DX: K92.2 Gastrointestinal hemorrhage, unspecified (principal); D50.9 Iron deficiency anemia, unspecified; F10.20 Alcohol dependence, uncomplicated; F17.210 Nicotine dependence, cigarettes, uncomplicated; G89.29 Other chronic pain; M54.30 Sciatica, unspecified side; Y90.7 Blood alcohol level of 200-239 mg/100 ml; Z80.0 Family history of malignant neoplasm of digestive organs
CPT/HCPCS: 36415; 36430; 80048; 80053; 82274; 82728; 83735; 84100; 85007; 85025; 86850; 86900; 86901; 86920; G0480; J2060; J2405; J3475; J7030; P9016; 99285-25; G0378; Q0163